=== PATIENT | female | born 1960 | race Caucasian/White ===

== ENCOUNTER 2017-07-13 08:28 | Day surgery (SDC) | payer BC ==
[~2017-07-13] VITALS: Ht 154.9 cm; Wt 68.0 kg
[~2017-07-13 08:28] MED LIST: ALBUTEROL2.5 MG/3 M IN; AMOXICILLIN500 MG PO; ASPIRIN EC325 MG PO; DIGOXIN0.25 MG OR; LIPITOR20 MG OR; LISINOPRIL20 M1 OR; LISINOPRIL20 MG OR; LORTAB 5/3255 MG PO; METOPROL TAR25 M1 OR; NO HOME MEDS; NORVASC10 MG OR; PLAVIX75 MG OR; VITAMIN D32000 UNIT PO
[2017-07-13 10:02] VITALS: BP 102/55
== END 2017-07-13 10:22 | disposition home or self-care (01) | DRG 951 ==
LOC: ENDO 08:28
PROVIDERS: ATTEND Surgery
PROC: 0DBL8ZX Excision of Transverse Colon, Via Natural or Artificial Opening Endoscopic, Diagnostic (ICD-10-PCS; principal; 2017-07-13)
DX: Z12.11 Encounter for screening for malignant neoplasm of colon (principal); K63.5 Polyp of colon; I10 Essential (primary) hypertension; I25.10 Atherosclerotic heart disease of native coronary artery without angina pectoris; Z95.1 Presence of aortocoronary bypass graft